=== PATIENT | female | born 1970 | race Caucasian/White ===

== ENCOUNTER 2017-03-13 05:20 | Emergency (ER) | payer OTHER ==
[2017-03-13 06:19] LABS: HEMOGLOBIN 12.9 gm/dl (12.3-15.3); RED BLOOD COUNT 4.34 M/UL (4.00-5.10); WHITE BLOOD COUNT 6.1 K/UL (4.5-11.0)
[2017-03-13 07:02] LABS: BUN/CREATININE RATIO 25 (0-10)
== END 2017-03-13 12:05 | disposition home or self-care (01) ==
LOC: ER1 05:20
PROVIDERS: Family Medicine
DX: R07.9 Chest pain, unspecified (principal); R11.0 Nausea; M54.9 Dorsalgia, unspecified; E07.9 Disorder of thyroid, unspecified; Z86.718 Personal history of other venous thrombosis and embolism; F17.200 Nicotine dependence, unspecified, uncomplicated; Z88.0 Allergy status to penicillin; Z88.1 Allergy status to other antibiotic agents; Z91.041 Radiographic dye allergy status; Z79.82 Long term (current) use of aspirin; Z79.899 Other long term (current) drug therapy
CPT/HCPCS: 36415; 71010; 80053; 82150; 82550; 82553; 83690; 83874; 84484; 84703; 85025; 85379; 93005; 99285